=== PATIENT | male | born 1990 | race Caucasian/White ===

== ENCOUNTER 2022-03-17 19:51 | Emergency (ER) | payer BC, SELFPAY ==
[2022-03-17 19:53] VITALS: BP 132/86; PULSE 76; RESP 18; TEMP 36.9; O2SAT 100; BMI 24.3
--- NOTE | 2022-03-17 21:16 | EX.ED.VIS.EY ---
HPI History of Present Illness Chief Complaint: Eye Problem Detail of Chief Complaint: Left eye foreign body sensation Informant: patient Onset/Context/Timing Context: Gradual Onset and Sudden Onset Timing: Continuous Current Severity: Mild Maximum Severity: Mild Associated Symptoms Associated Symptoms - Eyes: Foreign body sensation History of injury: Yes and Foreign body Visual correction: None Narrative Narrative: 32-year-old male no seen past medical history. No prior eye surgeries. He was doing some at home he thinks the rust came off a screw that he was undergoing and got in his left eye. Occurred today. He does not wear glasses or contacts has never had surgery to his left eye. Denies any visual change. Prior similar symptoms: No Recent Illness/Hospitalization: No PFSH PFSH Medical History no medical history no medical history Allergy/AdvReac Type Severity Reaction Status Date / Time Penicillins [PCN] Allergy Hives Verified 03/17/22 19:51 Family History no significant family his no significant family history Surgical History no surgical history no surgical history Social History Smoking Status: Never smoker ROS ROS ED ROS Narrative Denies recent illness. Review of Systems ROS Unobtainable: Denies due to encephalopathy Constitutional Constitutional ED: Denies chills or fever(s) Eyes Eyes: Denies blurry vision ENT ENT ED: Denies ear pain Cardiovascular Cardiovascular: Denies chest pain Respiratory/Chest Respiratory/Chest: Denies cough or dyspnea Gastrointestinal Gastrointestinal: Denies abdominal pain Genitourinary Genitourinary ED: Denies dysuria Musculoskeletal Musculoskeletal: Denies arthralgias Integumentary Denies abscess Neurologic Neurologic: Denies headache(s) Psychiatric Psychiatric: Denies anxiety Endocrine Endocrinology: Denies polydipsia Hematologic/Lymphatic Hematologic/Lymphatic: Denies easy bleeding Allergic/Immunologic Allergic/Immunologic ED: Denies mouth swelling or tongue swelling EXAM Physical Exam Narrative Exam Narrative: 32-year-old male no acute distress vital signs stable afebrile. H EENT exam pupils round reactive light motions are intact. Upper and lower lids are unremarkable. There does appear to be tiny little fragments of metal and the left eye about 2:00 on the iris. No discharge. Otherwise exam normal. Const Vital Signs: 03/17/22 19:53 Temperature 98.4 F Temperature Source Temporal Pulse Rate 76 Respiratory Rate 18 Blood Pressure 132/86 H Blood Pressure Mean 101 Pulse Ox 100 Oxygen Delivery Method Room Air Positive well nourished and well developed; Negative for obese, cachectic, contractures or unkempt General Appearance ED: well developed and NAD; Negative for unkempt, cachectic or contractures Nutritional Appearance: Negative for cachectic or obese HEENT atraumatic; Negative for trauma or tenderness Eyes Eyes Narrative: Small pieces of metal left eye of the iris around 2-3 o'clock. Neck no lymphadenopathy, supple and no JVD General: Negative for tenderness Resp normal respiratory effort, no retractions, no use of accessory muscles and clear to auscultation bilaterally Cardio regular rate, regular rhythm, S1 normal heart sound, S2 normal heart sound and no murmurs GI non-tender, non-distended and no masses Auscultation: normoactive bowel sounds Palpation: soft Extremity normal to inspection General Extremety ED: Negative for edema General Extremity: Negative for edema Neuro oriented x3, CN's II-XII intact bilaterally, moves all extremities and no sensory deficits noted Sensorium / Orientation: alert, oriented to person, oriented to place and oriented to time; Negative for orientation impaired or other Motor Exam: strength 5/5 throughout Psych Appearance: Negative for unkempt Attitude: No agitated Mood & Affect: Negative for depressed, anxious or tearful Skin no wounds Lesions: no lesions Rashes: no rashes Trauma: abrasion MDM MDM MDM Narrative Medical decision making narrative: Left eye foreign body. Tetracaine, fluorescein. Slit lamp exam. Revealed multiple small fragments of metal left eye at the iris periphery between 2 and 5:00. I was able to pull those off with a wet Q-tip. Patient tolerated well. On repeat slit-lamp examination there are some small corneal abrasions but I think I got all the metal. There is no rust ring. Patient was instructed on follow-up as needed. Discharge Plan Triage Chief Complaint: Eye Problem ED Provider: Khadar Cervantes Dx/Rx/DC Orders Clinical Impression: Metal foreign body in eye region, Abrasion, corneal Instructions: ED Corneal Abrasion, ED Corneal Foreign Body, Removed Primary Care Provider: Jose Ji NP Referrals: Jesus Morton MD [Med Staff - Active Staff] - 3-5 Days if not improving Jose Ji MACHINE [employer] PICKER, MACH[employer] P[employer]ER-C [Primary Care Provider] - Activity Restrictions/Additional Instructions: You may use the tetracaine eyedrops until Saturday night. After that they can retard healing. 2 drops as needed for pain. Throw them away Saturday night. Sunglasses to prevent glare. Tylenol and Motrin for pain. Eye ointment twice a day for the next 3 days. This should completely resolve. I took off 3-4 small pieces of metal. There are small corneal abrasions that should heal. If you are still feeling like there is foreign body follow-up with the eye doctor to have it reevaluated. Any signs of infection such as pus, swelling follow-up. Disposition Disposition: Home, Self Care
[2022-03-17] MEDS: Tetracaine 0.5% Ophthalmic Bottle 1 DRP LEFT EYE (22:00)
[2022-03-17] MEDS: Fluorescein 1 MG STRIP 1 STRIP LEFT EYE (22:00)
[2022-03-17 22:01] VITALS: RESP 16
[2022-03-17] MEDS: Neomycin/Bacitracin/Polymyxin Opth. Ointment 1 APPLIC LEFT EYE (22:11)
== END 2022-03-17 22:13 | disposition home or self-care (01) ==
PROVIDERS: Emergency Provider Emergency Medicine; PCP Nurse Practitioner Family; Visit Provider Emergency Medicine
DX: T15.92XA Foreign body on external eye, part unspecified, left eye, initial encounter (principal); S05.02XA Injury of conjunctiva and corneal abrasion without foreign body, left eye, initial encounter; X58.XXXA Exposure to other specified factors, initial encounter
CPT/HCPCS: 99282